=== PATIENT | male | born 1930 | race Caucasian/White ===

== ENCOUNTER 2017-08-31 15:02 | Inpatient (IN) | payer OTHER ==
[~2017-08-31] VITALS: Ht 175.3 cm; Wt 78.9 kg
[~2017-08-31 15:02] MED LIST: AMLODIPINE BESYL5 MG PO; ASPIR 8181 MG PO; CLARITIN10 M2 PO; COZAAR 50 MG TA50 MG PO; FLONASE 0.05%50 MCG INH; FLUZONE 2045 MCG/011; HYDROCHLOROTHIA25 M1 PO; NORCO 5-325 TA1 EACH PO; PLAVIX 75 MG TA75 M1 PO; PNEUMOVAX25 MCG/0.5
[2017-08-31 15:07] VITALS: BP 158/70
[2017-08-31 15:59] LABS: HEMATOCRIT 46.2 % (42.0-52.0); HEMOGLOBIN 15.6 gm/dL (14.0-18.0); MCH 31.6 pg (26.0-34.0); MCHC 33.7 g/dL (28.0-37.0); MCV 93.6 fL (80.0-100.0); MPV 7.9 fl. (7.2-11.1); NUCLEATED RBCS 0 /100WBC; PLATELET COUNT* 183 thou/uL (150-400); RBC 4.94 mil/uL (4.50-6.00); WBC 12.7 thou/uL (4.0-11.0)
[2017-08-31 16:06] LABS: ANION GAP 7 mmol/L (7-16); BUN 18 mg/dL (7-18); CHLORIDE 101 mmol/L (98-107); CO2 32 mmol/L (21-32); GLUCOSE 109 mg/dL (70-99); POTASSIUM 3.7 mmol/L (3.5-5.1); SODIUM 140 mmol/L (136-145)
[2017-08-31 16:07] LABS: APTT 26.6 Seconds (25.0-31.3); INR 1.1; PROTIME 10.7 Seconds (9.20-11.50)
[2017-08-31 16:13] LABS: ALBUMIN 3.7 g/dL (3.4-5.0); ALKALINE PHOSPHATASE 76 U/L (46-116); SGOT 26 U/L (15-37); SGPT 31 U/L (30-65); TOTAL BILIRUBIN 0.7 mg/dL (<0.1-1.0); TOTAL PROTEIN 7.6 g/dL (6.4-8.2); TROPONIN-I LEVEL <0.06 ng/mL (<0.06)
[2017-08-31 17:00] LABS: ABSOLUTE LYMPHOCYTES 1.4 thou/uL (0.8-5.3); ABSOLUTE MONOCYTES 0.6 thou/uL (0.0-1.2); ABSOLUTE NEUTROPHILS 10.7 thou/uL (1.6-8.1); PLATELET ESTIMATE ADEQUATE
[2017-08-31 18:00] LABS: URINE BILIRUBIN NEGATIVE (Negative); URINE BLOOD NEGATIVE (Negative); URINE CLARITY CLEAR; URINE COLOR YELLOW; URINE GLUCOSE-RANDOM NEGATIVE (Negative); URINE KETONES NEGATIVE (Negative); URINE LEUKOCYTES-REFLEX NEGATIVE (Negative); URINE NITRITE-REFLEX NEGATIVE (Negative); URINE PROTEIN NEGATIVE (Negative); URINE SPECIFIC GRAVITY 1.025 (1.005-1.030); URINE UROBILINOGEN 0.2 E.U./dl (0.2-1.0)
[2017-08-31 19:52] VITALS: BP 144/74
[2017-08-31 20:06] VITALS: BP 138/72
[2017-09-01] VITALS: BP 153/64
[2017-09-01 04:00] VITALS: BP 156/67
[2017-09-01 08:00] VITALS: BP 144/62
[2017-09-01 13:11] VITALS: BP 121/63
[2017-09-01 16:00] VITALS: BP 144/77
[2017-09-01 20:45] VITALS: BP 148/65
[2017-09-02] VITALS: BP 133/63
[2017-09-02 04:00] VITALS: BP 133/58
[2017-09-02 08:00] VITALS: BP 152/67
[2017-09-02 09:16] LABS: CHOLESTEROL 171 mg/dL (<200); HDL CHOLESTEROL 49 mg/dL (>40); LDL CHOLESTEROL 100 mg/dL (<100); TC:HDL 3.5 Ratio (Not establshd); TRIGLYCERIDE 110 mg/dL (<150); VLDL 22 mg/dL (<40)
[2017-09-02 09:17] LABS: SERUM ASSESSMENT Clear
[2017-09-02 12:00] VITALS: BP 143/56
[2017-09-02] MEDS ORDERED: LIPITOR 10 MG10 M1 PO (15:00)
[2017-09-02] MEDS ORDERED: MINOCIN100 MG PO (15:04)
[2017-09-02 15:20] VITALS: BP 143/56
--- NOTE | 2017-09-02 15:54 | EKG ---
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: : 1930 Requested By: Aida Baeza Order Number: [id number] MD: Roni Schofield Measurements Intervals [place] Rate: 71 P: 11 RI: 166 QRS: -20 QRSD: 173 T: 14 QT: 418 QTc: 455 Interpretive Statements Sinus rhythm Ventricular premature complex Right bundle branch block Compared to ECG 02/17/2016 13:55:53 Ventricular premature complex(es) now present Electronically Signed On 09-02-2017 15:54:05 STALLION KEEPER by Roni Schofield [email or web address] <ELECTRONICALLY SIGNED> By: Angi Schofield MD, [facility] 09/02/17 1554 1540 1540 F. Roni Schofield MD, [facility] /EPI
== END 2017-09-02 16:15 | disposition home or self-care (01) | DRG 57 ==
LOC: M.ERS 15:02 → M.2W 16:40 → M.TBA-ER 16:40 → M.2W 20:42
PROVIDERS: Internal Medicine; Nurse Practitioner Family; ADMIT Internal Medicine
DX: G30.9 Alzheimer's disease, unspecified (principal); G45.9 Transient cerebral ischemic attack, unspecified; I16.1 Hypertensive emergency; R41.0 Disorientation, unspecified; D72.829 Elevated white blood cell count, unspecified; F03.90 Unspecified dementia, unspecified severity, without behavioral disturbance, psychotic disturbance, mood disturbance, and anxiety; I99.9 Unspecified disorder of circulatory system; I10 Essential (primary) hypertension; Z87.442 Personal history of urinary calculi; Z98.42 Cataract extraction status, left eye; Z98.41 Cataract extraction status, right eye; Z88.8 Allergy status to other drugs, medicaments and biological substances; Z79.899 Other long term (current) drug therapy; Z79.82 Long term (current) use of aspirin; F02.80 Dementia in other diseases classified elsewhere, unspecified severity, without behavioral disturbance, psychotic disturbance, mood disturbance, and anxiety

== ENCOUNTER 2021-04-28 11:50 | Observation (INO) | payer OTHER ==
[2021-04-28] VITALS (18 sets, daily range): BP systolic 117–186; BP diastolic 51–72
[~2021-04-28] VITALS: Ht 175.3 cm; Wt 79.4 kg
--- NOTE | ~2021-04-28 | H ---
[address] [address] HISTORY AND PHYSICAL Name: ENOCH ROBLERO VALERIE Room: [address] Nemo Galindo#: [id number] Admission: 04/28/21 Attend Phys: Mateo Knight MD Discharge: 04/29/21 Date of : 34 Report #: [id number] THIS REPORT FOR: cc: GRANT OLIVERA MD Physician not on staff [facility],Medical Records Staff ~ Please refer to the History and Physical performed in the physician's office. By: 1423Medical Records Staff [facility] /[place]
[~2021-04-28 11:50] MED LIST changes: +B-COMPLEX TABL0.4 MG PO; +BENICAR20 MG PO; +CLARITIN10 M3 PO; +LIPITOR 10 MG10 M1 PO; +MINOCIN100 MG PO; +NITROSTAT0.4 M1 SUBLING
[2021-04-28 12:43] LABS: HEMATOCRIT 43.1 % (42.0-52.0); HEMOGLOBIN 14.4 gm/dL (14.0-18.0); MCH 31.5 pg (26.0-34.0); MCHC 33.4 g/dL (28.0-37.0); MCV 94.1 fL (80.0-100.0); MPV 7.9 fl. (7.2-11.1); RBC 4.58 mil/uL (4.50-6.00); RDW-CV 13.3 % (10.5-14.5)
[2021-04-28 13:00] LABS: ANION GAP 7 mmol/L (7-16); BUN 19 mg/dL (7-18); CALCIUM 8.9 mg/dL (8.5-10.1); CHLORIDE 99 mmol/L (98-107); CO2 29 mmol/L (21-32); CREATININE 1.1 mg/dL (0.6-1.3); GLUCOSE 101 mg/dL (70-99); POTASSIUM 4.4 mmol/L (3.5-5.1); SODIUM 135 mmol/L (136-145)
[2021-04-28 13:01] LABS: APTT 26.2 Seconds (25.0-31.3)
[2021-04-28 13:06] LABS: ALBUMIN 3.8 g/dL (3.4-5.0); ALKALINE PHOSPHATASE 73 U/L (46-116); CHOLESTEROL 179 mg/dL (<200); HDL CHOLESTEROL 60 mg/dL (>40); LDL CHOLESTEROL 103 mg/dL (<100); SERUM ASSESSMENT Clear; SGOT 23 U/L (15-37); SGPT 24 U/L (30-65); TOTAL BILIRUBIN 0.8 mg/dL (<0.1-1.0); TOTAL PROTEIN 7.2 g/dL (6.4-8.2); TRIGLYCERIDE 82 mg/dL (<150); VLDL 16 mg/dL (<40)
[2021-04-28] MEDS ORDERED: ASA81BEC PO (13:08)
--- NOTE | 2021-04-28 13:41 | EKG ---
[place] [address] ELECTROCARDIOGRAM REPORT Name: ENOCH ROBLERO Room: [facility]#: [id number] Admission: 04/28/21 Attend Phys: Nayeli Suarez RN Discharge: Date of : 34 Date of Service: 04/28/21 1308 Report #: [id number] THIS REPORT FOR: //name// [facility] Test Date: 2021-04-28 Test Time: 13:08:03 Pat Name: ENOCH ROBLERO Department: Room: Gender: Borematic Operator: LYLY : 1930 Requested By: Mateo Knight Order Number: [id number] Reading MD: Federico Yanes Measurements Intervals [place] Rate: 50 P: 9 [place]: 196 QRS: 37 QRSD: 173 T: 22 QT: 475 QTc: 434 Interpretive Statements Sinus bradycardia Right bundle branch block Baseline wander in lead(s) II,III,aVF Compared to ECG 08/31/2017 15:40:30 Ventricular premature complex(es) no longer present rate has slowed Electronically Signed On 04-28-2021 13:40:57 CDT by Federico Yanes [email or web address] <ELECTRONICALLY SIGNED> By: Federico Yanes MD, [facility] 04/28/21 1340 1308 1308 Federico Yanes MD, [facility] /EPI
[2021-04-28 17:39] LABS: HEMATOCRIT 37.6 % (42.0-52.0); HEMOGLOBIN 12.8 gm/dL (14.0-18.0); MCH 32.1 pg (26.0-34.0); MCHC 34.1 g/dL (28.0-37.0); MPV 7.8 fl. (7.2-11.1); RDW-CV 13.1 % (10.5-14.5); WBC 10.1 thou/uL (4.0-11.0)
[2021-04-29 02:58] VITALS: BP 111/54
[2021-04-29 06:11] VITALS: BP 112/54
[2021-04-29 09:17] VITALS: BP 126/46
[2021-04-29 12:00] VITALS: BP 102/42
[2021-04-29 12:09] VITALS: BP 126/46
[2021-04-29 13:55] VITALS: BP 126/46
--- NOTE | 2021-04-29 14:29 | EKG ---
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: [id number] : 1930 Requested By: Mateo Knight Order Number: [id number] Reading MD: Federico Yanes Measurements Intervals [place] Rate: 59 P: 165 AL: 182 QRS: 32 QRSD: 166 T: 151 QT: 441 QTc: 437 Interpretive Statements Sinus or ectopic atrial rhythm RBBB Baseline wander in lead(s) V3 Partial missing lead(s): V3 Compared to ECG 04/28/2021 13:08:03 no change Electronically Signed On 04-29-2021 14:29:27 CDT by Federico Yanes [email or web address] <ELECTRONICALLY SIGNED> By: Federico Yanes MD, FAC 04/29/21 1429 0434 0434 Federico Yanes MD, [facility] /EPI
--- NOTE | 2021-04-29 14:42 | NUR ---
ASSUMED PT CARE AT 0730. PT IS PLEASANTLY, A&OX4. PT UP WITH STAND BY ASSIST. PT DENIES ANY PAION OR DISCOMFORT. PT WITH LARGE HEMATOMA TO R GROIN, POST CATH SITE. NURSING FACULTY UPDATED ON SITE. NO NEW ORDERS AT THIS TIME. MEDICATIONS ADMINISTERED ORDERED. NEW ORDERS TO DISCHARGE PT TO HOME WITH SPOUSE. ORDERS REVIEWED WITH PT AND SPOUSE WHO BOTH VERBALIZE UNDERSTANDING. IV DC'D AND HEART MONITOR REMOVED. ALL BELONGINGS WITH PT. STAFF ASSISTED TO MAIN ENTRANCE VIA WC AT APPROX 1435.
--- NOTE | 2021-05-09 09:08 | D ---
[address] [address] DISCHARGE SUMMARY Name: ENOCH ROBLERO Room: [address] Nemo Galindo#: [id number] Admission: 04/28/21 Attend Phys: Mateo Knight MD Discharge: 04/29/21 Date of : 34 Report #: [id number] THIS REPORT FOR: cc: GRANT OLIVERA MD Physician not on staff Mateo Knight MD [facility] ~ DATE OF DISCHARGE: 04/29/2021 INDICATION: Unstable angina. DISCHARGE DIAGNOSES: 1. Unstable angina. 2. Coronary artery disease. 3. Hypertension. 4. Hyperlipidemia. 5. Bifascicular heart block. 6. History of transient ischemic attack. PROCEDURES DURING HOSPITALIZATION: 1. Coronary angiography. 2. Left heart catheterization. 3. Left ventriculography. HOSPITAL COURSE: The patient was admitted to the hospital with complaints of increasing chest discomfort, typical of unstable angina. On catheterization, he was found to have multivessel disease with a 90% proximal left anterior descending coronary artery stenosis for which he underwent drug-eluting stent placement. The intervention went according to plan. The patient did develop significant hematoma in the right groin after the procedure that stabilized overnight and was soft and nontender the following day. His hemoglobin remained stable. The patient was discharged to home uneventfully. DISCHARGE MEDICATIONS: 1. Aspirin 81 mg daily. 2. Plavix 75 mg daily. 3. Hydrochlorothiazide 25 mg daily. 4. Nitrostat sublingual p.r.n. 5. Benicar 20 mg b.i.d. 6. Claritin 10 mg daily. 7. B complex vitamin one daily. DISPOSITION: The patient to follow up with Cardiology office in 4 weeks. <ELECTRONICALLY SIGNED> By: Mateo Knight MD, FACC 05/09/2108 1606 1929Miccristian Knight MD, FACC /nt
--- NOTE | 2021-05-12 14:29 | CARD ---
[address] [address] CARDIAC CATH REPORT Name: ENOCH ROBLERO Room: [address] Nemo Galindo#: [id number] Admission: 04/28/21 Attend Phys: Mateo Knight MD Discharge: 04/29/21 Date of : 34 Report #: [id number] THIS REPORT FOR: cc: GRANT OLIVERA MD Physician not on staff Mateo Knight MD [facility] ~ APPROVED REPORT Study performed: 04/28/2021 13:03:55 Patient Details Patient Status: Out-Patient Room #: The patient is a 89 year-old male Event Personnel Mateo Knight Friction Welding Machine Operator, Rachelle Wharton RN RN, Marc Porter CUSTOMER SUPPORT CONSULTANT Monitor, Aaliyah King RTR Farzana Ramos David Veneer Sawyer Procedures Performed cath pci Indication Unstable angina Risk Factors Arterial Hypertension Previous Procedures/Diagnoses Previous CVA Admission/Lab Medications/Medications given during procedure Platelet Aff. Inhib., Heparin Unfract. Procedure Narrative The patient was brought electively to the Cardiac Catheterization Laboratory and was prepped and draped in a sterile manner. The right femoral was infiltrated with 1% Lidocaine subcutaneous anesthesia. IV conscious sedation was used throughout procedure with appropriate monitoring and was performed in the presence of a registered nurse who was an independent trained observer other than the physician performing the procedure. A [place] 6 FR sheath was inserted into the right femoral artery. Coronary angiography was performed using coronary diagnostic catheters. The right [place] [address] CARDIAC CATH REPORT Name: ENOCH ROBLERO Room: [address] Nemo Galindo#: [id number] Admission: 04/28/21 Attend Phys: Mateo Knight MD Discharge: 04/29/21 Date of : 34 Report #: [id number] and visualized with a 3DRC 5fr catheter. The left coronary system was accessed and visualized with a JL5 6fr catheter. The left ventricle was accessed and visualized with a PC: Pig 6fr catheter. Left ventricular/Aortic Valve gradient assessed via catheter pullback. Left ventriculogram was performed in BENZ projection. Closure device was deployed with a 6 Fr Angioseal. Hemostasis was obtained with manual pressure following sheath removal without any complications. A hematoma occurred. Attempted placement of an angioseal. However, the anchor did not seat, and the angioseal was not deployed. Intraoperative Conscious Sedation Sedation start time: 1342 Case end Time: 1424 Fentanyl 25 mcg Versed 1 mg Fluoro Time: 9.6 minutes Dose: DAP 87681 cGycm2 1571 mGy Contrast Type and Amount: Omnipaque 250 ml Diagnostic Cath Left Main The left main coronary artery is short and bifurcates into a left anterior descending coronary artery and circumflex coronary artery. The left main is mildly plaque without significant stenosis. LAD The LAD has a 99% stenosis just after the takeoff of a very proximal diagonal branch. The remainder the vessel is free of significant disease. Diagonal 1 A very proximal moderate size diagonal branch has 90% narrowing at its takeoff. The remainder the vessel is free of significant disease. Diagonal 2 A moderate-sized branched second diagonal branch has a 70% mid narrowing. Circumflex The proximal circumflex coronary artery has a 70% focal narrowing. The mid and distal vessel are mildly plaqued and free of significant disease. OM1 A small in caliber small first obtuse marginal branch is diffusely moderately plaque. OM2 A small in caliber second obtuse marginal branch is diffusely plaque. OM3 A moderate-sized third obtuse marginal branch is minimally plaqued without hemodynamically significant stenoses. Right Coronary The right coronary artery has a 60% narrowing proximally. The mid and distal vessel are moderately plaqued [place] [address] CARDIAC CATH REPORT Name: OSBALDOENOCH VALERIE Room: [address] Nemo Galindo#: [id number] Admission: 04/28/21 Attend Phys: Mateo Knight MD Discharge: 04/29/21 Date of : 34 Report #: [id number] R PDA Distally the right coronary artery gives rise to a single PDA that is diffusely mildly plaque. Left Ventriculography The left ventricle is normal in size with normal contractility. The left ventricular ejection fraction is estimated to be 60-65%. Hemodynamics The aortic pressure is 170/58 mmHg with a mean of 112 mmHg. The left ventricular pressure is 149/6 mmHg with a mean of mmHg. The left ventricular end diastolic pressure is 19 mmHg. PCI Technique Lesion Anticoagulation was achieved with Heparin. Patient was preloaded with Plavix. Percutaneous coronary intervention was performed on the proximal left anterior descending artery segment. The lesion stenosis prior to intervention was 90% with ANNALISE 3 flow. A 6F JL 5.0 Guide Catheter was used to engage the lm ostium. A IG: BMW 190cm Interventional Guidewire was used to cross the lesion. BALLOON DILATION A Balloon catheter Trek RX 2.5 X 8 was inserted and inflated up to 14.00atm for 17seconds. Repeat angiography revealed the following post-dilatation results: 40% stenosis. STENT DEPLOYMENT A stent [place] RX Stent 3.0X15mm was inserted and inflated up to 10.00atm for 14seconds. Repeat angiography revealed the following post-stent deployment results: 0% stenosis. Additional Inflation: 12.00atm for 13seconds. Final angiography reveals 0 % stenosis with ANNALISE 3 flow. Conclusion 1. Three-vessel coronary artery disease as outlined above. 2. Mildly elevated left ventricular end-diastolic pressure. 3. Normal left ventricular systolic function. A. successful placement of a drug eluting stent in [place] [address] CARDIAC CATH REPORT Name: COLUMBAENOCH VALERIE Room: [address] Nemo Galindo#: [id number] Admission: 04/28/21 Attend Phys: Mateo Knight MD Discharge: 04/29/21 Date of : 34 Report #: [id number] Recommendations Cardiac Rehabilitation Referral Aggressive Medical Therapy 1. Percutaneous coronary intervention to the left anterior descending coronary artery. 2. Continue aggressive risk modification. Medications Administered Clopidogrel <ELECTRONICALLY SIGNED> By: Mateo Knight MD, [facility] 05/12/21 1429 28 1429Miccristian Knight MD, [facility] /INF
== END 2021-04-29 14:40 | disposition home or self-care (01) ==
LOC: M.CL 11:50 → M.TBA-CV 14:05 → M.2W 18:19
PROVIDERS: ADMIT Internal Medicine Cardiovascular Disease; ATTEND Internal Medicine Cardiovascular Disease
DX: I25.110 Atherosclerotic heart disease of native coronary artery with unstable angina pectoris (principal); Z20.822 Contact with and (suspected) exposure to COVID-19; I10 Essential (primary) hypertension; E78.5 Hyperlipidemia, unspecified; I45.2 Bifascicular block; Z86.73 Personal history of transient ischemic attack (TIA), and cerebral infarction without residual deficits; Z79.82 Long term (current) use of aspirin; Z79.899 Other long term (current) drug therapy